=== PATIENT | female | born 1990 | race Caucasian/White ===

== ENCOUNTER 2017-06-07 08:55 | Emergency (ER) | payer OTHER ==
--- NOTE | 2017-06-07 09:24 | ER Document Report ---
ED Medical Screen (RME) - General Chief Complaint: Low Back Pain Stated Complaint: BACK PAIN,NAUSEA Time Seen by Provider: 06/07/17 09:23 Notes: Patient states she was having a normal day until he bent over to grab her purse and then had a sudden severe pain in the right low back that is anything numbness down the right leg. She denies any other complaints. TRAVEL OUTSIDE OF THE [place] IN LAST 30 DAYS: No - Related Data Allergies/Adverse Reactions: droperidol Allergy (Verified 06/07/17 09:01) Past Medical History Renal/ Medical History: Denies: Hx Peritoneal Dialysis Physical Exam - Vital signs Vitals: Temp Pulse Resp BP Pulse Ox 98.5 F 117 H 24 H 97/82 L 98 06/07/17 09:04 06/07/17 09:04 06/07/17 09:04 06/07/17 09:04 06/07/17 09:04 Course - Vital Signs Vital signs: Temp Pulse Resp BP Pulse Ox 98.5 F 117 H 24 H 97/82 L 98 06/07/17 09:04 06/07/17 09:04 06/07/17 09:04 06/07/17 09:04 06/07/17 09:04
[2017-06-07] MEDS ORDERED: NORMAL SALINE 1000 ML 1,000 ML IV PRN (09:43)
[2017-06-07] MEDS ORDERED: KETOROLAC TROMETHAMINE INJ/PF 30 MG/1 ML SDV IV ONE (09:43)
[2017-06-07] MEDS ORDERED: MORPHINE SULFATE 10 MG/ML INJ IV ONE ×2 (09:44→13:05)
[2017-06-07] MEDS ORDERED: ONDANSETRON HCL INJ/PF 4 MG/2 ML SDV IV ONE (09:45)
[2017-06-07] MEDS ORDERED: DIAZEPAM INJ 10 MG/2 ML DISP.SYRIN IV ONE ×2 (10:32→11:18)
--- NOTE | 2017-06-07 10:35 | ER Document Report ---
ED General - General Chief Complaint: Low Back Pain Stated Complaint: BACK PAIN,NAUSEA Time Seen by Provider: 06/07/17 09:23 Mode of Arrival: Stretcher Information source: Patient TRAVEL OUTSIDE OF THE [place] 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 when the pain started suddenly, she denies any bowel or bladder dysfunction, she reports a sensation of [id number] crunching in her low back, she denies a history of similar symptoms previously but does report a history of kidney stones, states the symptoms are completely different , patient reports some nausea associated with pain but no vomiting, no fever, no urinary symptoms - Related Data Allergies/Adverse Reactions: droperidol Allergy (Verified 06/07/17 09:01) Past Medical History - General Information source: Patient - Social History Smoking Status: Former Smoker Chew tobacco use (# tins/day): No Frequency of alcohol use: None Drug Abuse: None Family History: Reviewed & Not Pertinent Patient has suicidal ideation: No Patient has homicidal ideation: No Renal/ Medical History: Reports: Hx Kidney Stones - 15+ hx and currently has a stone per patient with blood in urine. Denies: Hx Peritoneal Dialysis Past Surgical History: Reports: Hx Kidney (Renal Surgery) - kidney stone lap sx last 2016 Review of Systems - Review of Systems Constitutional: No symptoms reported EENT: No symptoms reported Cardiovascular: No symptoms reported Respiratory: No symptoms reported Gastrointestinal: No symptoms reported Genitourinary: No symptoms reported Female Genitourinary: No symptoms reported Musculoskeletal: See HPI Skin: No symptoms reported Hematologic/Lymphatic: No symptoms reported Neurological/Psychological: Tingling -: Yes All other systems reviewed and negative Physical Exam - Vital signs Vitals: Temp Pulse Resp BP Pulse Ox 98.5 F 117 H 24 H 97/82 L 98 06/07/17 09:04 06/07/17 09:04 06/07/17 09:04 06/07/17 09:04 06/07/17 09:04 Interpretation: Normal - General General appearance: Alert In distress: None - HEENT Head: Normocephalic, Atraumatic Eyes: Normal Pupils: PERRL - Respiratory Respiratory status: No respiratory distress Chest status: Nontender Breath sounds: Normal Chest palpation: Normal - Cardiovascular Rhythm: Regular Heart sounds: Normal auscultation Murmur: No - Abdominal Inspection: Normal Distension: No distension Bowel sounds: Normal Tenderness: Nontender Organomegaly: No organomegaly - Back Back: Normal, Tender - Tenderness to palpate in the paraspinal musculature radiating down to the left buttock - Extremities General upper extremity: Normal inspection, Nontender, Normal color, Normal ROM , Normal temperature General lower extremity: Normal inspection, Nontender, Normal color, Normal temperature. No: Colin's sign - Neurological Neuro grossly intact: Yes Cognition: Normal Orientation: AAOx4 [place] Coma Scale Eye Opening: Spontaneous [place] Coma Scale Verbal: Oriented [place] Coma Scale Motor: Obeys Commands Jing Coma Scale Total: 15 Speech: Normal Motor strength normal: LUE, RUE, LLE, RLE Sensory: Normal - Psychological Associated symptoms: Normal affect, Normal mood - Skin Skin Temperature: Warm Skin Moisture: Dry Skin Color: Normal Course - Re-evaluation Re-evalutation: 06/07/17 13:52 Patient continues to have pain in her low back which is consistent with muscle strain, x-ray shows degenerative changes but no acute findings, this was discussed with patient at bedside, additional pain medication was ordered but patient refused this medication, stating that she feels no better from when she first came in here, and she would just like to be discharged home so she can go lay down in her own bed, I offered patient additional pain medication, or muscle relaxers, advised her I would give her a prescription for these medications to be used at home which she declined, stating that she would just like to go home and wait this out, she will have a friend come pick her up, she does not have any family in the area or friends besides coworkers, she is tearful at time of evaluation, repeatedly stating she just wants to go home, therefore patient was advised to rest, refrain from heavy lifting or strenuous exercise, apply cold compresses to her low back, follow-up with a primary care provider or return if symptoms worsen, patient acknowledges understanding and agreement with this plan - Vital Signs Vital signs: Temp Pulse Resp BP Pulse Ox 98.0 F 69 18 116/69 100 06/07/17 13:50 06/07/17 13:50 06/07/17 13:50 06/07/17 13:50 06/07/17 13:50 - Diagnostic Test Radiology reviewed: Image reviewed, Reports reviewed Discharge - Discharge Clinical Impression: Low back pain Qualifiers: Chronicity: acute Back pain laterality: left Sciatica presence: with sciatica Sciatica laterality: sciatica of left side Qualified Code(s): M54.42 - Lumbago with sciatica, left side Condition: Stable Disposition: HOME, SELF-CARE Instructions: Ice Packs ([facility]), Low Back Pain ([facility]), Muscle Strain ([facility]) Additional Instructions: Follow up with your primary care provider in one to 2 days. Return to the emergency room immediately if symptoms worsen or any additional concerns. Prescriptions: Cyclobenzaprine HCl [Flexeril 10 Mg Tablet] 10 mg PO TID #10 tablet Forms: Return to Work
--- NOTE | 2017-06-07 12:43 | RADIOLOGY REPORT (SQ) ---
EXAM DESCRIPTION: L SPINE WHOLE COMPLETED DATE/TIME: 06/07/2017 12:31 pm REASON FOR STUDY: pain COMPARISON: None. NUMBER OF VIEWS: Five views including obliques. TECHNIQUE: AP, lateral, oblique, and sacral radiographic images acquired of the lumbar spine. LIMITATIONS: None. FINDINGS: MINERALIZATION: Normal. SEGMENTATION: Normal. No transitional anatomy. ALIGNMENT: Normal. VERTEBRAE: Maintained height. No fracture or worrisome bone lesion. DISCS: There is slight narrowing of the L4-5 disc space POSTERIOR ELEMENTS: Pedicles and facets are intact. No pars defect or posterior arch defects. HARDWARE: None in the spine. PARASPINAL SOFT TISSUES: Normal. PELVIS: Intact as visualized. No fractures or worrisome bone lesions. SI joints intact. OTHER: No other significant finding. IMPRESSION: There are mild degenerative disc changes at L4-5. TECHNICAL DOCUMENTATION: JOB ID: [id number] [employer]- All Rights Reserved
[2017-06-07 13:50] VITALS: BP 116/69
== END 2017-06-07 14:35 | disposition home or self-care (01) ==
LOC: ER 08:55
DX: M54.42 Lumbago with sciatica, left side (principal); M47.9 Spondylosis, unspecified; R20.0 Anesthesia of skin; R20.2 Paresthesia of skin; R11.0 Nausea; Z87.442 Personal history of urinary calculi; Z88.8 Allergy status to other drugs, medicaments and biological substances; Z87.891 Personal history of nicotine dependence
CPT/HCPCS: 96376; 99283; 96374; 96375; 72110; J3360; J1885; J2270; J2405